=== PATIENT | male | born 1960 | race Caucasian/White ===

== ENCOUNTER 2021-06-05 09:41 | Emergency (ER) | payer OTHER ==
[~2021-06-05] VITALS: Ht 170.2 cm; Wt 72.6 kg
--- NOTE | 2021-06-05 09:53 | NUR ---
Agitated/Restless/Uncooperative/gets easily agitated and verbally obnoxious. Escorted by [employer] on handcuffs upon arrival. 5150 hold written by [employer]
[2021-06-05 10:36] LABS: CALCIUM, SERUM 8.5 mg/dL (8.5-10.1); CREATININE 0.7 mg/dL (0.6-1.3)
[2021-06-05 10:41] LABS: ALBUMIN 3.7 g/dL (3.4-5.0); BILIRUBIN,DIRECT 0.1 mg/dL (0.0-0.2); BILIRUBIN,TOTAL 0.3 mg/dL (0.2-1.0); TOTAL PROTEIN, SERUM 7.7 g/dL (6.4-8.2)
--- NOTE | 2021-06-05 10:43 | NUR ---
COVID TEST COLLECTED AND SENT
[2021-06-05] MEDS ORDERED: LORAZEPAM 1 MG TABLET PO ONE (11:00)
[2021-06-05] MEDS ORDERED: OLANZAPINE 5 MG TABLET PO ONE (11:00)
[2021-06-05 11:05] LABS: BASOPHILS % (AUTO) 0.8 % (0.0-2.0); EOSINOPHILS % (AUTO) 2.1 % (0.0-6.0); HEMATOCRIT 43 % (39-51); HEMOGLOBIN 14.1 g/dL (13.5-17.5); LYMPHOCYTES # (AUTO) 1.9 K/uL (0.8-4.8); MEAN CORPUSCULAR HGB CONC 33 g/dl (31.0-36.0); MEAN CORPUSCULAR VOLUME 96 fL (80-96); MONOCYTES # (AUTO) 0.4 K/uL (0.1-1.30); MONOCYTES % (AUTO) 6.1 % (2.0-12.0); PLATELET COUNT (AUTO) 355 K/uL (150-450); RED BLOOD CELL COUNT(AUTO) 4.45 MIL/uL (4.5-6.0); WHITE BLOOD COUNT (AUTO) 6.5 K/uL (4.3-11.0)
--- NOTE | 2021-06-05 11:07 | NUR ---
SS Note: SS consult for suicidal. Pt. Is a 60-year-old White male who demonstrates adequate insight to the reason for hospitalization. Per pt., he/she presented himself to hospital for suicidal ideation. Pt. was oriented x3, alert, and cooperative. During interview, pt. was capable of following directions, made appropriate eye-contact, and appeared unkempt. Pt.'s speech was at a normal rate and pt.'s mood was irritable. Pt. reported no hx of mental health, denies homicidal ideation. Pt. denies auditory hallucinations, visual hallucinations, paranoia, or delusions. Per pt., he drinks alcohol. Pt. stated he drinks about 2 pints of Vodka every day. SW explored pt.'s living situation. Per pt., he stays at a [facility], but does not know the name. [place] face sheet is [id number] [place], [place], pt. confirmed it. Pt. stated that he is still feeling suicidal, and his plan is to cut himself. Pt. has hx of cutting. Plan: SW will be faxing clinicals over to psych hospitals once pt. is medically cleared.
[2021-06-05] MEDS ORDERED: LORAZEPAM 1 MG TABLET ONE (11:11)
[2021-06-05] MEDS ORDERED: OLANZAPINE 5 MG TABLET ONE (11:11)
--- NOTE | 2021-06-05 15:58 | NUR ---
Patient discharged to home in stable condition. Written and verbal after care instructions given. Patient verbalizes understanding of instruction.
[2021-06-05 16:00] VITALS: BP 137/89
[2021-06-05 16:58] LABS: BILIRUBIN,URINE NEGATIVE (NEGATIVE); COLOR,URINE YELLOW (YELLOW); LEUKOCYTE ESTERASE ,URINE NEGATIVE (NEGATIVE); NITRITE, URINE NEGATIVE (NEGATIVE); PH,URINE 6.5 (5.0-8.0); PROTEIN,URINE NEGATIVE (NEGATIVE); UGLUCOSE NEGATIVE (NEGATIVE); UROBILINOGEN,URINE 0.2 EU/dL (0.2)
[2021-06-05 17:37] LABS: BACTERIA,URINE None seen /HPF (None Seen); MUCUS,URINE Few /LPF (None Seen); RBC,URINE 0-2 /HPF (0-2); SQUAMOUS EPITHELIAL CELL,UR 0-2 /HPF (None Seen); WBC,URINE 0-2 /HPF (0-3)
== END 2021-06-05 16:00 | disposition home or self-care (01) ==
LOC: ER 09:45
DX: R45.851 Suicidal ideations (principal); F10.10 Alcohol abuse, uncomplicated; Y90.8 Blood alcohol level of 240 mg/100 ml or more; F29 Unspecified psychosis not due to a substance or known physiological condition; F41.9 Anxiety disorder, unspecified; F31.9 Bipolar disorder, unspecified; F20.9 Schizophrenia, unspecified; Z20.822 Contact with and (suspected) exposure to COVID-19
CPT/HCPCS: 36415; 80048; 80076; 80143; 80307; 80320 ×2; 81001; 85025; 87426; 99285; C9803; G0480

== ENCOUNTER 2022-01-08 17:14 | Emergency (ER) | payer OTHER ==
[~2022-01-08] VITALS: Ht 177.8 cm; Wt 72.6 kg
--- NOTE | 2022-01-08 17:22 | NUR ---
[id number] FROM A [facility] [id number] , PER EMS REPORT PATIENT TOLD [employer] TECHNICIAN THAT HE TOOK 12 OSIRIS, BS 106
[2022-01-08] MEDS: IV NS 0.9% 1,000 ML BAG IV ONE (17:25)
[2022-01-08] MEDS: NALOXONE PREFILLED SYRINGE 2 MG/2 ML SYRINGE IV ONE (17:30)
--- NOTE | 2022-01-08 17:30 | NUR ---
established iv line at right arm 18g
--- NOTE | 2022-01-08 17:30 | NUR ---
blood sample obtained sent to lab
[2022-01-08] MEDS ORDERED: NALOXONE PREFILLED SYRINGE 2 MG/2 ML SYRINGE ONE (17:31)
--- NOTE | 2022-01-08 17:39 | NUR ---
rt at bedside for abg
--- NOTE | 2022-01-08 17:46 | NUR ---
URINE COLLECTED AND SENT
--- NOTE | 2022-01-08 17:55 | NUR ---
TAKEN TO CT BY TECH
[2022-01-08 18:03] LABS: ABG BASE EXCESS -0.3 mmol/L; ABG PCO2 40.2 mmHg (35.0-45.0); ABG PH 7.401 (7.350-7.450); ABG PO2 96.1 mmHg (75.0-100.0); COHb 3.7 % (0.5-1.5); MetHb 0.3 % (0.0-1.5); O2Hb 93.2 % (94.0-97.0); SITE, ABG Right Radial; VENT MODE, BG 3L NC
[2022-01-08 18:11] LABS: BASOPHILS # (AUTO) 0.1 K/uL (0.0-0.2); BASOPHILS % (AUTO) 1.3 % (0.0-2.0); EOSINOPHILS % (AUTO) 4.9 % (0.0-6.0); HEMATOCRIT 44 % (39-51); HEMOGLOBIN 14.7 g/dL (13.5-17.5); LYMPHOCYTES # (AUTO) 2.4 K/uL (0.8-4.8); LYMPHOCYTES % (AUTO) 41.4 % (20.0-44.0); MEAN CORPUSCULAR HGB CONC 34 g/dl (31.0-36.0); MEAN CORPUSCULAR VOLUME 97 fL (80-96); MONOCYTES # (AUTO) 0.6 K/uL (0.1-1.30); MONOCYTES % (AUTO) 10.2 % (2.0-12.0); NEUTROPHILS # (AUTO) 2.5 K/uL (1.8-8.9); NEUTROPHILS % (AUTO) 42.2 % (43.0-81.0); PLATELET COUNT (AUTO) 286 K/uL (150-450); WHITE BLOOD COUNT (AUTO) 5.8 K/uL (4.3-11.0)
--- NOTE | 2022-01-08 18:15 | NUR ---
CALLED POISON CONTROL [phone] [facility]: RECOMMENDED OBS SIX HOURS. LOOK FOR SEDATION, TACHYCARDIA, DILATED PUPILS. HYPOTENSION USE IV FLUIDS. REPEAT EKG LOOK IF QTC >500 THEN MAY TREAT MAGNISIUM, ADOLFO, & POTASSIUM END.
[2022-01-08 18:23] LABS: CALCIUM, SERUM 8.7 mg/dL (8.5-10.1); CREATININE 0.6 mg/dL (0.6-1.3); POTASSIUM 4.6 mmol/L (3.5-5.1)
[2022-01-08 18:25] LABS: ALBUMIN 3.6 g/dL (3.4-5.0); BILIRUBIN,DIRECT 0.1 mg/dL (0.0-0.2); BILIRUBIN,TOTAL 0.4 mg/dL (0.2-1.0); TOTAL PROTEIN, SERUM 7.6 g/dL (6.4-8.2)
[2022-01-08 18:32] LABS: BILIRUBIN,URINE NEGATIVE (NEGATIVE); COLOR,URINE YELLOW (YELLOW); LEUKOCYTE ESTERASE ,URINE NEGATIVE (NEGATIVE); NITRITE, URINE NEGATIVE (NEGATIVE); PH,URINE 5.5 (5.0-8.0); PROTEIN,URINE NEGATIVE (NEGATIVE); UGLUCOSE NEGATIVE (NEGATIVE); UROBILINOGEN,URINE 0.2 EU/dL (0.2)
--- NOTE | 2022-01-08 18:59 | NUR ---
COVID TEST COLLECTED AND SENT
--- NOTE | 2022-01-08 19:41 | NUR ---
RECEIVED PT IN ROOM 1. PT IS RESTING IN BED WITH EYES CLOSED, RR EVEN AND NON LABORED. CONNECTED TO POX AND HEART MONITOR. VITAL SIGNS WITHIN LIMITS. WILL CONTINUE TO MONITOR.
--- NOTE | 2022-01-08 21:40 | NUR ---
PT BECAME AGITATED, REMOVED POX AND HEART MONITOR. ATTEMPTED TO ELOPE. REDIRECTED AND RECONNECTED TO ALL MONITORS. SITTER AT BEDSIDE
--- NOTE | 2022-01-08 22:15 | NUR ---
S/W FROM POISON CONTROL [phone] PT NEEDS REPEAT EKG, LFTS, AND TYLENOL
[2022-01-08 23:40] LABS: ALBUMIN 3.2 g/dL (3.4-5.0); BILIRUBIN,DIRECT 0.1 mg/dL (0.0-0.2); BILIRUBIN,TOTAL 0.2 mg/dL (0.2-1.0)
--- NOTE | 2022-01-09 06:29 | NUR ---
VIRGIE AT BEDSIDE TO CRISIS EVAL
--- NOTE | 2022-01-09 08:18 | NUR ---
Pt Re-evaluated bt Dr Bartlett Medically/Psych cleared for discharge. Ambulatory/steady. Breakfast and Tap Card provided. Patient discharged to home in stable condition. Written and verbal after care instructions given. Patient verbalizes understanding of instruction.
[2022-01-09 08:52] VITALS: BP 124/81
== END 2022-01-09 08:53 | disposition home or self-care (01) ==
LOC: ER 17:16
DX: T43.592A Poisoning by other antipsychotics and neuroleptics, intentional self-harm, initial encounter (principal); R53.83 Other fatigue; Y92.099 Unspecified place in other non-institutional residence as the place of occurrence of the external cause; F10.129 Alcohol abuse with intoxication, unspecified; Y90.8 Blood alcohol level of 240 mg/100 ml or more; Z20.822 Contact with and (suspected) exposure to COVID-19; S80.212A Abrasion, left knee, initial encounter; X58.XXXA Exposure to other specified factors, initial encounter; Y92.89 Other specified places as the place of occurrence of the external cause
CPT/HCPCS: 99285; 96374; 96361; 93005 ×2; 71045; 72125; 70450; 82140; 85025; 80048; 83605; 80076 ×2; 81003; 36415 ×2; 82962; 36600; 87426; 80143 ×2; 80320 ×2; 80307; 73564; J2310; C9803; G0480